=== PATIENT | female | born 1990 | race Caucasian/White ===

== ENCOUNTER 2019-04-02 10:30 | Inpatient (IN) | payer OTHER ==
[2019-04-02] MEDS ORDERED: DINOPROSTONE 10 MG VAGINAL SUPPOSITORY VG ONE (11:13)
--- NOTE | 2019-04-02 11:20 | HP ---
Past Medical History - Admission Chief Complaint: IOL, oligo History of Present Illness: 28yo @ 38.5wks by giovana, BREANNA 04/11/2019, here for IOL for oligo (CODY 5) and BPP 6/8 today at [facility] No VB/LOF. No ctx. +FM Last EFW 8lbs (78%tile). 2 prior NSVDs, largest 7lbs (7 years ago) Preg c/b: inconsistent PNC (7 visits total); UTI x 1, GBS neg PNC @ [address] History Source: Patient Limitations to Obtaining History: No Limitations - Past Medical History HEARING AID CONSULTANT: No: Alzheimer's, CVA, Dementia, Migraine, Multiple Sclerosis, Peripheral Neuropathy, Parkinson's, Seizure, Syncope, TIA, Vertigo, Other Cardiovascular: No: AFIB, Aneurysm, Aortic Insufficiency, Aortic Stenosis, CAD, CHF, Deep Vein Thrombosis, HTN, Hyperlipdemia, [place], Mitral Insufficiency, Mitral Stenosis, Murmur, Pulmonary Hypertension, Other Pulmonary: No: Asthma, Bronchitis, Cancer, COPD, O2 Dependent, Pneumonia, Previously Intubated, Pulmonary Embolus, Pulmonary Fibrosis, Sleep Apnea, Other Gastrointestinal: No: Ascites, Cancer, Constipation, Crohn's Disease, Diverticulitis, Diverticulosis, Esophageal Varices, Gastritis, GERD, GI Bleed, Hemorrhoids, Hiatal Hernia, Inflamatory Bowel Disease, Irritable Bowel Disease, Pancreatitis, Peptic Ulcer Disease, Ulcerative Colitis, Other Hepatobiliary: No: Cirrhosis, Cholelithiasis, Cholecystitis, Choledocholithiasis , Hepatitis A, Hepatitis B, Hepatitis C, Other Renal/: No: Renal Failure, Renal Inusuff, BPH, Cancer, Hematuria, Hemodialysis , Neurogenic Bladder, Renal Calculi, UTI, Other Reproductive: No: Ectopic , Endometriosis, Fibroids, PID, Polycystic Ovary Syndrome, Postmenopausal, Other ...: 5 ...Para: 2 ...Term: 2 ...Induced : 3 ... Weeks Gestation by Dates: 38.5 ...EDC by Giovana: 04/11/19 Heme/Onc: No: Anemia, B12 Deficiency, Bleeding Disorder, Cancer, Current Chemotherapy, Current Radiation Therapy, Hemochromatosis, Hypercoaguable State, Myeloproliferative Synd, Sickle Cell Disease, Sickle Cell Trait, Thrombocytopenia, Other - Past Surgical History Past Surgical History: Yes: None Hx Myomectomy: No Hx Transabdominal Cerclage: No - Smoking History Smoking history: Current every day smoker Have you smoked in the past 12 months: Yes Aproximately how many cigarettes per day: 3 - Alcohol/Substance Use Hx Alcohol Use: No History of Substance Use: reports: None - Social History Usual Living Arrangement: Yes: With Significant Other Do you think of yourself as: Straight/Heterosexual ADL: Independent History of Recent Travel: No Home Medications - Allergies Allergies/Adverse Reactions: Allergies Allergy/AdvReac Type Severity Reaction Status Date / Time No Known Allergies Allergy Verified 06/13/15 11:30 - Home Medications Home Medications: Ambulatory Orders Ferrous Sulfate [Iron] 325 mg PO DAILY 04/02/19 Pnv No.95/Ferrous Fum/Folic AC [ Formula] 1 each PO DAILY 04/02/19 Review of Systems - Review of Systems Constitutional: denies: No Symptoms, Chills, Diaphoresis, Fever, Lethargy, Loss of Appetite, Malaise, Night Sweats, Unintentional Wgt. Loss, Weakness, Other Cardiovascular: denies: No Symptoms, Chest Pain, Edema, Palpitations, Shortness of Breath, Other Respiratory: denies: No Symptoms, Cough, Exercise Intolerance, Hemoptysis, Orthopnea, PND, Snoring, SOB, SOB on Exertion, Wheezing, Other Gastrointestinal: denies: No Symptoms, Abdominal Pain, Bloating, Constipation, Diarrhea, Dysphagia, Indigestion, Melena, Nausea, Rectal Bleeding, Vomiting, Vomiting Blood, Other Physical Exam - Maternity - Abdominal Exam/OB Number of Fetuses: Single Presentation: Vertex Contractions: No Monitor Mode: External Heart Rate Location: [facility] Category: I Decelerations: None - Vaginal Exam/OB Vaginal Bleediing: No Speculum Exam: No Dilatation (cm): 0 Effacement (%): 0 Presentation: Vertex/Position Station: -3 - Physical Exam Edema: Yes Imaging - Results Ultrasound: Report Reviewed Problem List - Problems (1) Oligohydramnios in summers in third trimester Code(s): O41.03X0 - OLIGOHYDRAMNIOS, THIRD TRIMESTER, NOT APPLICABLE OR UNSP Assessment/Plan 28yo @ 38.5wks here for IOL for oligo, BPP 09/23 Admit to L&D Cervidil for ripening Pitocin/AROM when favorable Pain medicine prn Anticipate RADHA Do MD
[2019-04-02 11:40] LABS: BASO % 0.4 % (0-2.0); EOS % 0.6 % (0-4.5); HEMATOCRIT 31.9 % (32.4-45.2); HEMOGLOBIN 10.3 GM/dL (10.7-15.3); LYMPH % 17.5 % (8-40); MCH 25.6 pg (25.7-33.7); MCHC 32.3 g/dl (32.0-36.0); MEAN CELL VOLUME 79.2 fl (80-96); MEAN PLT VOLUME 8.5 fl (7.5-11.1); MONO % 6.1 % (3.8-10.2); NEUT % 75.4 % (42.8-82.8); PLATELET COUNT 300 K/MM3 (134-434); RBC 4.03 M/mm3 (3.60-5.2); RDW 15.1 % (11.6-15.6); WHITE BLOOD COUNT 11.9 K/mm3 (4.0-10.0)
[2019-04-02 12:07] LABS: CALCIUM 8.8 mg/dL (8.5-10.1); CREATININE 0.5 mg/dL (0.55-1.3); POTASSIUM 4.1 mmol/L (3.5-5.1)
[2019-04-02 12:20] LABS: INR 0.96 (0.83-1.09); PROTHROMBIN TIME (PATIENT) 11.3 SEC (9.7-13.0)
[2019-04-02 12:22] LABS: ACTIVATED PTT 28.4 SECONDS (25.2-36.5)
[2019-04-02 12:53] VITALS: BMI 38.5
[2019-04-02] MEDS: ELECTROLYTE-148 SOLN 1,000 ML IV SCH (20:17)
--- NOTE | 2019-04-03 00:17 | PN ---
Ante-Partal Exam - Subjective Subjective: Patient evaluated for progression of induction Vital Signs: Vital Signs Temperature 98.9 F 04/02/19 22:00 Pulse Rate 97 H 04/02/19 22:00 Respiratory Rate 18 04/02/19 22:00 Blood Pressure 122/69 04/02/19 22:00 O2 Sat by Pulse Oximetry (%) Bleeding: No Headache: No Visual changes: No Right upper quadrant pain: No - Contractions Contractions: Yes Regularity: Irregular Intensity: Mild Monitor Mode: External - Exam during Labor Heart Rate: 135 Variability: Moderate Category: I Monitor Accelerations: Present Monitor Decelerations: None Exam: Vaginal Dilatation (cm): 0.5 Effacement (%): 30 Amniotic Membrane Status: Intact Station: -3 (posterior) - Assessment/Plan Assessment/Plan: 28 y/o @ 38.6wks, induction of labor due to oligohydramnios, s/p cervidil # 2, entire OB summary reviewed including 03/30/19 sono (AC 93%), Counseling regarding IOL, pain control and AC ahed of dates carried out. All questions answered and patient is interested and motivated for a trial of labor -Continue induction -Pain control PRN
[2019-04-03] MEDS ORDERED: DINOPROSTONE 10 MG VAGINAL SUPPOSITORY VG ONE (04:00)
[2019-04-03] MEDS ORDERED: NALOXONE HCL 0.4 MG/ML VIAL IVPUSH PRN (07:31)
[2019-04-03] MEDS ORDERED: LIDO 2%/EPI 1:200000 PRESRVFRE (20 ML SDVIAL) ONE (07:33)
[2019-04-03] MEDS ORDERED: FENTANYL/BUPIVACAINE/NS/PF - PCEA - 50 ML DISP.SYRIN EP ONE ×2 (07:34→12:28)
--- NOTE | 2019-04-03 07:38 | PN ---
Ante-Partal Exam - Subjective Subjective: Patient is requesting pain control Vital Signs: Vital Signs Temperature 98.3 F 04/03/19 03:00 Pulse Rate 98 H 04/03/19 03:00 Respiratory Rate 20 04/03/19 03:00 Blood Pressure 114/61 04/03/19 00:00 O2 Sat by Pulse Oximetry (%) Bleeding: No Headache: No Visual changes: No Right upper quadrant pain: No - Contractions Contractions: Yes Regularity: Regular Intensity: Moderate Monitor Mode: External - Exam during Labor Heart Rate: 130 Variability: Moderate Category: I Monitor Accelerations: Present Monitor Decelerations: None Exam: Vaginal (cervidil removed) Dilatation (cm): 3.5 Effacement (%): 60 Amniotic Membrane Status: Intact Presentation: Vertex Station: -3 - Assessment/Plan Assessment/Plan: 28 y/o P2 @ 38.6wks, induction of labor due to oligohydramnios, S/P cervidil # 2 , FHT cat I requesting epidural -Epidural is OK -Re-evaluate accordingly
[2019-04-03] MEDS ORDERED: FENTANYL/BUPIVACAINE/NS/PF - PCEA - 50 ML DISP.SYRIN EP SCH (07:45)
[2019-04-03] MEDS ORDERED: OXYTOCIN 30 UNITS in 0.9% NS 30 UNIT/500 ML INFUS.BAG IVPB ONE (13:25)
[2019-04-03] MEDS ORDERED: BISACODYL 10 MG SUPP.RECT RC PRN (13:43)
[2019-04-03] MEDS ORDERED: METHYLERGONOVINE MALEATE 0.2 MG/1 ML AMP IM PRN (13:43)
[2019-04-03] MEDS ORDERED: WITCH HAZEL 50% (TUCKS) 40 PAD/JAR PAD TP PRN (13:43)
[2019-04-03] MEDS ORDERED: BENZOCAINE 20% 57 GM BOTTLE TP PRN (13:43)
[2019-04-03] MEDS ORDERED: BENZOCAINE 28 GM HEMORRHOIDAL OINTMENT TP PRN (13:43)
[2019-04-03] MEDS ORDERED: OXYTOCIN 20 UNITS in 0.9% NS 20 UNIT/1,000 ML INFUS.BAG IV SCH (13:45)
[2019-04-03] MEDS ORDERED: D5W-LR W/ 20 UNITS OXYTOCIN 20 UNIT/1,000 ML INFUS.BAG IV SCH (13:45)
--- NOTE | 2019-04-03 13:46 | PN ---
Delivery - Delivery Vaginal Delivery: Spontaneous Type of Anesthesia: Epidural (cx full , head delivered , nasopharynx suctioned , cord around neck once, reduced, ant. and posterior shoulder with no difficulty , live baby boy , 9/9. placenta complete, , no laceration, ebl 300cc , no complication) Episiotomy/Laceration: None EBL (cc): 300 Delivery, Single - 1 Minute Total Score: 8 5 Minutes Total Score: 9 - [place] Feeding Plan Initial Plan: Elected not to breastfeed exclusively throughout hospitalization
[2019-04-03] MEDS: ACETAMINOPHEN 325 MG TABLET (FP) PO PRN (20:49)
[2019-04-03] MEDS: IBUPROFEN 600 MG TABLET (FP) PO PRN (20:50)
[2019-04-03] MEDS: FERROUS SO4 325 MG TABLET (FP) PO SCH (21:33)
[2019-04-03] MEDS: ELECTROLYTE-148 SOLN 1,000 ML IV SCH (23:04)
--- NOTE | 2019-04-04 08:13 | PN ---
Post Progress Note - Subjective Subjective: no complains pt obese Post Day: 1 Type of Delivery: Vital Signs: Vital Signs Temperature 97.8 F 04/04/19 05:45 Pulse Rate 82 04/04/19 05:45 Respiratory Rate 18 04/04/19 05:45 Blood Pressure 98/58 L 04/04/19 05:45 O2 Sat by Pulse Oximetry (%) 98 04/03/19 15:45 Breast Exam: Yes: Soft (non tender , BF ). No: Engorged Uterus: Yes: Fundus Firm, Fundus below umbilicus, Non-tender Lochia: Yes: Rubra Lochia, amount: Moderate Extremities: Yes: Calves non-tender Perineum: Yes: Intact Activity: Ambulating - Labs Labs: CBC WBC 11.9 K/mm3 (4.0-10.0) H 04/02/19 11:20 RBC 4.03 M/mm3 (3.60-5.2) 04/02/19 11:20 Hgb 10.3 GM/dL (10.7-15.3) L 04/02/19 11:20 Hct 31.9 % (32.4-45.2) L 04/02/19 11:20 MCV 79.2 fl (80-96) L 04/02/19 11:20 MCH 25.6 pg (25.7-33.7) L 04/02/19 11:20 MCHC 32.3 g/dl (32.0-36.0) 04/02/19 11:20 RDW 15.1 % (11.6-15.6) 04/02/19 11:20 Plt Count 300 K/MM3 (134-434) D 04/02/19 11:20 MPV 8.5 fl (7.5-11.1) 04/02/19 11:20 Absolute Neuts (auto) 9.0 K/mm3 (1.5-8.0) H 04/02/19 11:20 Neutrophils % 75.4 % (42.8-82.8) D 04/02/19 11:20 Lymphocytes % 17.5 % (8-40) D 04/02/19 11:20 Monocytes % 6.1 % (3.8-10.2) 04/02/19 11:20 Eosinophils % 0.6 % (0-4.5) 04/02/19 11:20 Basophils % 0.4 % (0-2.0) 04/02/19 11:20 Nucleated RBC % 0 % (0-0) 04/02/19 11:20 Problem List - Problems (1) care and examination of lactating mother Code(s): Z39.1 - ENCOUNTER FOR CARE AND EXAMINATION OF LACTATING MOTHER Assessment/Plan stable. plan ct pp care pp cbc pending discharge tomorrow
[2019-04-04 09:30] LABS: BASO % 0.4 % (0-2.0); EOS % 1.4 % (0-4.5); HEMATOCRIT 29.5 % (32.4-45.2); HEMOGLOBIN 9.6 GM/dL (10.7-15.3); LYMPH % 22.3 % (8-40); MCH 25.5 pg (25.7-33.7); MCHC 32.4 g/dl (32.0-36.0); MEAN CELL VOLUME 78.6 fl (80-96); MEAN PLT VOLUME 8.2 fl (7.5-11.1); MONO % 4.6 % (3.8-10.2); NEUT % 71.3 % (42.8-82.8); PLATELET COUNT 278 K/MM3 (134-434); RBC 3.75 M/mm3 (3.60-5.2); RDW 15.1 % (11.6-15.6); WHITE BLOOD COUNT 12.4 K/mm3 (4.0-10.0)
[2019-04-04] MEDS ORDERED: FLU VACC QS2019-20(6MOS UP)/PF 60 MCG/0.5 ML SYRINGE IM ONE (10:00)
[2019-04-04] MEDS ORDERED: FLU VACCINE QUAD 60 MCG/0.5 ML (MDV 19-20) IM ONE (10:00)
[2019-04-04] MEDS ORDERED: DIPHTH,PERTUSS(ACELL),TET 0.5 ML DISP.SYRIN IM ONE (10:00)
[2019-04-04] MEDS: FERROUS SO4 325 MG TABLET (FP) PO SCH ×2 (10:40→21:00)
[2019-04-04] MEDS: PRENATAL VITAMINS W/ FOLIC ACID TABLET (FP) PO SCH (10:40)
[2019-04-04] MEDS: IBUPROFEN 600 MG TABLET (FP) PO PRN (20:58)
[2019-04-04] MEDS: ACETAMINOPHEN 325 MG TABLET (FP) PO PRN (20:59)
[2019-04-04] MEDS ORDERED: SENNOSIDES/DOCUSATE COMBO (SENNA PLUS) TABLET (UD) PO PRN (22:00)
--- NOTE | 2019-04-05 08:24 | DS ---
Physical Examination Vital Signs: Vital Signs Temperature 99.3 F 04/04/19 22:00 Pulse Rate 85 04/04/19 22:00 Respiratory Rate 18 04/04/19 22:00 Blood Pressure 109/53 L 04/04/19 22:00 O2 Sat by Pulse Oximetry (%) 98 04/03/19 15:45 Constitutional: Yes: Well Nourished, No Distress, Calm Eyes: Yes: WNL, Conjunctiva Clear, EOM Intact HENT: Yes: WNL, Atraumatic, Normocephalic Neck: Yes: WNL, Supple, Trachea Midline Cardiovascular: Yes: WNL, Regular Rate and Rhythm Respiratory: Yes: WNL, Regular, CTA Bilaterally Gastrointestinal: Yes: WNL, Normal Bowel Sounds Musculoskeletal: Yes: WNL Extremities: Yes: WNL Edema: No Integumentary: Yes: WNL Neurological: Yes: WNL, Alert, Oriented ...Motor Strength: WNL Psychiatric: Yes: WNL Labs: CBC, BMP 04/04/19 09:05 04/02/19 11:20 Discharge Summary Problems reviewed: Yes Reason For Visit: INDUCTION OF LABOR Current Active Problems Oligohydramnios in summers in third trimester (Acute) care and examination of lactating mother (Acute) Procedures: Principal: Hospital Course: Patient presented for IOL for oligo, BPP 09/23 She had an uncomplicated She met all milestones She was discharged home in stable condition Condition: Stable - Instructions Diet, Activity, Other Instructions: Regular Diet Follow up in 4 weeks for your visit Referrals: Jocelyne Donovan CNM [Certified Nurse Cylinder Press Operator Apprentice] - Disposition: HOME - Home Medications Comprehensive Discharge Medication List: Ambulatory Orders Ferrous Sulfate [Iron] 325 mg PO DAILY 04/02/19 Pnv No.95/Ferrous Fum/Folic AC [ Formula] 1 each PO DAILY 04/02/19 Ibuprofen 600 mg PO Q6H PRN #30 tablet 04/04/19
[2019-04-05] MEDS: FERROUS SO4 325 MG TABLET (FP) PO SCH (10:09)
[2019-04-05] MEDS: PRENATAL VITAMINS W/ FOLIC ACID TABLET (FP) PO SCH (10:09)
[2019-04-05 10:13] VITALS: BP 106/50; PULSE 79; TEMP 98.2
== END 2019-04-05 13:40 | disposition home or self-care (01) | DRG 560 ==
LOC: JLDR 10:30 → J3W 04-03 15:45
PROVIDERS: ADMIT Obstetrics & Gynecology; ATTEND Obstetrics & Gynecology
PROC: 10E0XZZ Delivery of Products of Conception, External Approach (ICD-10-PCS; principal; 2019-04-03)
DX: O41.03X0 Oligohydramnios, third trimester, not applicable or unspecified (principal); O69.81X0 Labor and delivery complicated by cord around neck, without compression, not applicable or unspecified; Z3A.38 38 weeks gestation of pregnancy; Z37.0 Single live birth
CPT/HCPCS: 36415; 36600; 59409; 80048; 82803; 85025; 85610; 85730; 86593; 86850; 86900; 86901; 90686; 90715; G0008